=== PATIENT | female | born 1975 | race Caucasian/White ===

== ENCOUNTER 2019-01-12 10:18 | Emergency (ER) | payer SELFPAY ==
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
[2019-01-12] MEDS ORDERED: Baclofen 10 MG Tab PO ONE (11:33)
[2019-01-12] MEDS ORDERED: Ketorolac 60 MG/2 ML SDV IM ONE (11:33)
--- NOTE | 2019-01-12 11:48 | CRLCR ---
Indication: Pain Technique: Three views of the right shoulder. Comparison: None Findings: Glenohumeral and acromioclavicular joints are normally located with no significant degenerative changes. No acute fracture. Visualized portions of the lung are unremarkable. Lower cervical spine ACDF hardware. Impression: No fracture or dislocation Dictated by Ousmane Holloway MD @ Jan 12 2019 11:45AM Signed by Dr. Ousmane Hloloway @ Jan 12 2019 11:46AM
--- NOTE | 2019-01-12 11:53 | CRLCR ---
Indication: Pain Comparison: None Technique: Five views of the cervical spine. Findings: Cervical spine is imaged from the skull base through the cervicothoracic junction. Normal alignment. No fracture. Status post C6-7 ACDF with good osseous fusion. No hardware complication. Mild degenerative disc disease is noted at the C4-C5 and C5-C6 levels. Visualized lung apices unremarkable. Soft tissues unremarkable. Normal open mouth view. On the right there is mild/moderate foraminal narrowing at the C4-C5 and C5-C6 levels in the oblique view. There is no foraminal narrowing on the left in the oblique views. Impression: 1. No fracture or static subluxation. If there is concern for a radiographically occult cervical spine injury, consider CT. 2. Mild degenerative disc disease in the mid cervical spine. 3. Mild/moderate right foraminal narrowing at the C4-C5 and C5-C6 levels in the oblique view. Consider MRI if there is concern for radiculopathy. Dictated by Ousmane Holloway MD @ Jan 12 2019 11:47AM Signed by Dr. Ousmane Holloway @ Jan 12 2019 11:51AM
== END 2019-01-12 12:45 | disposition home or self-care (01) ==
LOC: JP.ED 10:18
DX: S40.011A Contusion of right shoulder, initial encounter (principal); M62.838 Other muscle spasm; Z88.0 Allergy status to penicillin; Z88.4 Allergy status to anesthetic agent; Z88.1 Allergy status to other antibiotic agents; Z88.8 Allergy status to other drugs, medicaments and biological substances; Z88.5 Allergy status to narcotic agent; Z88.2 Allergy status to sulfonamides; V43.12XA Car passenger injured in collision with other type car in nontraffic accident, initial encounter; Y92.524 Gas station as the place of occurrence of the external cause
CPT/HCPCS: 72050; 73030; 96372; 99283; A9270; J1885

== ENCOUNTER 2020-09-28 17:08 | Emergency (ER) | payer MEDICAID ==
[2020-09-28] MEDS ORDERED: Diphtheria,Pertussis(Acell),Tetanus Vaccine 0.5 ML Syringe IM ONE (17:35)
--- NOTE | 2020-09-28 17:43 | EDM.PDOC ---
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 Denies: Old Records History Limitations: Reports: No Limitations - History of Present Illness INITIAL COMMENTS - FREE TEXT/NARRATIVE: 45 yo female was bitten on the L hand dorsum last night. Today the area if red. No prox streaks or fever. Is allergic to Amox and Sulfa. The cat that bit her is strictly an inside cat and is their own cat. 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 (see below) (none) - Related Data Allergies Allergy/AdvReac Type Severity Reaction Status Date / Time amoxicillin Allergy Hives Verified 09/28/20 17:35 bupivacaine Allergy Other Verified 09/28/20 17:35 bupropion [From Wellbutrin] Allergy Other Verified 09/28/20 17:35 buspirone Allergy Cannot Verified 09/28/20 17:35 Remember codeine Allergy Vomiting Verified 09/28/20 17:35 hydrocodone Allergy Itching Verified 09/28/20 17:35 hydromorphone Allergy Itching Verified 09/28/20 17:35 morphine Allergy Itching Verified 09/28/20 17:35 oxycodone Allergy Itching Verified 09/28/20 17:35 Sulfa (Sulfonamide Allergy Rash Verified 09/28/20 17:35 Antibiotics) Narcotics Allergy Other Uncoded 09/28/20 17:35 Home Meds: Home Meds clonazePAM [Clonazepam] 1 - 4 mg PO BEDTIME PRN 01/12/19 [History] Doxycycline [Vibra-Tabs] 100 mg PO Q12HR #20 tab 09/28/20 [Rx] metroNIDAZOLE [Metronidazole] 500 mg PO Q8H #30 tablet 09/28/20 [Rx] Past Medical History HEENT History: Reports: Impaired Vision 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 Psychiatric History: Reports: Other (See Below) Other Psychiatric History: REM behavioral disorder Other Hematologic History: vitamin d deficiency - Past Surgical History Female Surgical History: Reports: Hysterectomy, Tubal Ligation Neurological Surgical History: Reports: Spinal Fusion ED ROS GENERAL - Review of Systems Review Of Systems: See Below Constitutional: Reports: No Symptoms Musculoskeletal: Reports: No Symptoms Skin: Reports: Erythema (dorsum of L hand), Wound (2 small puncture wounds to the dorsum of the L hand) Neurological: Reports: No Symptoms ED EXAM, SKIN/RASH Exam: See Below Exam Limited By: No Limitations General Appearance: Alert, WD/WN, No Apparent Distress Extremities: Normal Inspection Neurological: Alert, Oriented, CN II-XII Intact, Normal Cognition, No Motor/Sensory Deficits Psychiatric: Normal Affect, Normal Mood Skin: Warm, Dry, No Rash, Erythema (dorsum of L hand), Increased Warmth (dorsum of L hand). No: Lymphangitis Location, Skin: Upper Extremity, Left (hand) Characteristics: Erythematous Associated features: Warmth. No: Lymphangitis Course - Vital Signs Last Recorded V/S: Last Vital Signs Temp 36.4 C 09/28/20 17:36 Pulse 70 09/28/20 17:36 Resp 14 09/28/20 17:36 BP 122/75 09/28/20 17:36 Pulse Ox 96 09/28/20 17:36 - Orders/Labs/Meds Orders: Active Orders 24 hr Category Date Time Status Vaccines to be Administered [RC] PER UNIT ROUTINE Care 09/28/20 17:35 Ordered Meds: Medications Discontinued Medications Generic Name Dose Route Start Last Admin Trade Name Freq PRN Reason Stop Dose Admin Diphtheria/Tetanus/Acell Pertussis 0.5 ml 09/28/20 17:35 Diphtheria,Pertussis(Acell),Tetanus Vaccine 0.5 Ml Syringe IM 09/28/20 17:36 .ONCE ONE Departure - Departure Time of Disposition: 17:43 Disposition: Home, Self-Care 01 Condition: Fair Clinical Impression: Infected cat bite of hand Qualifiers: Encounter type: initial encounter Laterality: left Qualified Code(s): S61.452A - Open bite of left hand, initial encounter; L08.9 - Local infection of the skin and subcutaneous tissue, unspecified; W55.01XA - Bitten by cat, initial encounter - Discharge Information *PRESCRIPTION DRUG MONITORING PROGRAM REVIEWED*: Not Applicable *COPY OF PRESCRIPTION DRUG MONITORING REPORT IN PATIENT [facility]RA: Not Applicable Prescriptions: metroNIDAZOLE [Metronidazole] 500 mg PO Q8H #30 tablet Doxycycline [Vibra-Tabs] 100 mg PO Q12HR #20 tab Referrals: PCP,None [Primary Care Provider] - Additional Instructions: Use antibiotics as directed. Acetaminophen as needed for pain relief. Elevate the hand to reduce swelling. Keep wounds clean with soap and water. Recheck in a few days, sooner for worsening infection. Sepsis Event Note (ED) - Evaluation Sepsis Screening Result: No Definite Risk - Focused Exam Vital Signs: Vital Signs Temp Pulse Resp BP Pulse Ox 09/28/20 17:36 36.4 C 70 14 122/75 96 09/28/20 17:23 36.4 C 70 14 122/75 96 - My Orders Last 24 Hours: My Active Orders 09/28/20 17:35 Vaccines to be Administered [RC] PER UNIT ROUTINE - Assessment/Plan Last 24 Hours: My Active Orders 09/28/20 17:35 Vaccines to be Administered [RC] PER UNIT ROUTINE
== END 2020-09-28 17:55 | disposition home or self-care (01) ==
LOC: JP.ED 17:08
DX: S61.452A Open bite of left hand, initial encounter (principal); Z88.5 Allergy status to narcotic agent; Z88.6 Allergy status to analgesic agent; Z88.2 Allergy status to sulfonamides; Z88.0 Allergy status to penicillin; Z88.8 Allergy status to other drugs, medicaments and biological substances; Z23 Encounter for immunization; W55.01XA Bitten by cat, initial encounter
CPT/HCPCS: 90471; 90715; 99283

== ENCOUNTER 2023-07-01 17:09 | Emergency (ER) | payer MEDICARE ==
[2023-07-01 19:42] LABS: BASOPHILS ABSOLUTE AUTO 0.07 K/uL (0.00-0.10); BASOPHILS PERCENT AUTO 1.2 % (0.1-1.3); EOSINOPHILS ABSOLUTE AUTO 0.16 K/uL (0.00-0.40); EOSINOPHILS PERCENT AUTO 2.7 % (0.0-5.4); HEMATOCRIT 39.5 % (34.3-46.0); HEMOGLOBIN 12.6 g/dL (11.2-15.5); IMMATURE GRAN ABSOLUTE AUTO 0.02 K/uL (0.00-0.23); IMMATURE GRAN PERCENT AUTO 0.3 % (0.0-0.7); LYMPHOCYTES ABSOLUTE AUTO 2.12 K/uL (0.8-3.3); LYMPHOCYTES PERCENT AUTO 35.3 % (11.4-47.7); MEAN CORPUSCULAR HEMOGLOBIN 28.1 pg (31.6-35.5); MEAN CORPUSCULAR HGB CONC 31.9 g/dL (31.6-35.5); MEAN CORPUSCULAR VOLUME 88.2 fL (81.4-99.0); MONOCYTES ABSOLUTE AUTO 0.41 K/uL (0.20-0.90); MONOCYTES PERCENT AUTO 6.8 % (3.3-12.6); NEUTROPHILS ABSOLUTE AUTO 3.23 K/uL (1.0-7.6); NEUTROPHILS PERCENT AUTO 53.7 % (40.0-78.1); PLATELET COUNT,PLT 271 K/uL (130-375); RED BLOOD CELL COUNT 4.48 M/uL (3.77-5.24)
[2023-07-01] MEDS: Ketorolac 30 MG/ML SDV IM ONE (20:07)
== END 2023-07-01 22:54 | disposition home or self-care (01) ==
LOC: JP.ED 17:09
DX: S30.0XXA Contusion of lower back and pelvis, initial encounter (principal); L03.317 Cellulitis of buttock; K21.9 Gastro-esophageal reflux disease without esophagitis; Z88.0 Allergy status to penicillin; Z88.2 Allergy status to sulfonamides; Z88.5 Allergy status to narcotic agent; Z88.6 Allergy status to analgesic agent; Z88.8 Allergy status to other drugs, medicaments and biological substances; Z79.899 Other long term (current) drug therapy; Z90.710 Acquired absence of both cervix and uterus; W19.XXXA Unspecified fall, initial encounter
CPT/HCPCS: 36415; 72100; 85025; 96372; 99283; J1885

== ENCOUNTER 2024-02-21 15:35 | Emergency (ER) | payer MEDICAID, MEDICARE ==
[2024-02-21 16:30] LABS: APPEARANCE,URINE CLEAR (CLEAR); BILIRUBIN,URINE NEGATIVE (NEGATIVE); COLOR,URINE YELLOW (YELLOW); GLUCOSE,URINE NEGATIVE (NEGATIVE); KETONES,URINE NEGATIVE (NEGATIVE); LEUKOCYTE ESTERASE,URINE NEGATIVE (NEGATIVE); NITRITE,URINE NEGATIVE (NEGATIVE); OCCULT BLOOD,URINE NEGATIVE (NEGATIVE); PROTEIN,URINE NEGATIVE (NEGATIVE); UROBILINOGEN,URINE 0.2 EU/dL (0.2-1.0)
[2024-02-21 16:41] LABS: AMORPHOUS SEDIMENT,URINE NOT SEEN; BACTERIA,URINE FEW; EPITHELIAL CELLS,URINE FEW; MUCUS,URINE FEW; RBC,URINE NOT SEEN (0-5); WBC,URINE 0-5 (0-5)
[2024-02-21 17:02] LABS: BASOPHILS ABSOLUTE AUTO 0.04 K/uL (0.00-0.10); BASOPHILS PERCENT AUTO 0.5 % (0.1-1.3); EOSINOPHILS ABSOLUTE AUTO 0.13 K/uL (0.00-0.40); EOSINOPHILS PERCENT AUTO 1.7 % (0.0-5.4); HEMOGLOBIN 11.9 g/dL (11.2-15.5); IMMATURE GRAN ABSOLUTE AUTO 0.06 K/uL (0.00-0.23); IMMATURE GRAN PERCENT AUTO 0.8 % (0.0-0.7); LYMPHOCYTES ABSOLUTE AUTO 2.73 K/uL (0.8-3.3); LYMPHOCYTES PERCENT AUTO 35.7 % (11.4-47.7); MEAN CORPUSCULAR HEMOGLOBIN 28.5 pg (31.6-35.5); MEAN CORPUSCULAR HGB CONC 33.1 g/dL (31.6-35.5); MEAN CORPUSCULAR VOLUME 86.3 fL (81.4-99.0); MONOCYTES ABSOLUTE AUTO 0.45 K/uL (0.20-0.90); MONOCYTES PERCENT AUTO 5.9 % (3.3-12.6); NEUTROPHILS ABSOLUTE AUTO 4.24 K/uL (1.0-7.6); NEUTROPHILS PERCENT AUTO 55.4 % (40.0-78.1); PLATELET COUNT,PLT 216 K/uL (130-375); RED BLOOD CELL COUNT 4.17 M/uL (3.77-5.24); WHITE BLOOD CELL COUNT,WBC 7.7 K/uL (3.2-11.0)
[2024-02-21] MEDS: HYDROmorphone 2 MG Tab PO ONE (17:07)
[2024-02-21] MEDS: Cyclobenzaprine 10 MG Tab PO ONE (17:08)
[2024-02-21 17:17] LABS: ANION GAP 9.2 mmol/L (5.0-14.0); CALCIUM 8.9 mg/dL (8.5-10.1); CREATININE 0.9 mg/dL (0.6-1.0); EST CRCL DRUG DOSING (CG) 60.46 mL/min; POTASSIUM,K 3.9 mmol/L (3.6-5.2)
== END 2024-02-21 19:00 | disposition home or self-care (01) ==
LOC: JP.ED 15:35
DX: R55 Syncope and collapse (principal); S40.011A Contusion of right shoulder, initial encounter; K21.9 Gastro-esophageal reflux disease without esophagitis; Z90.710 Acquired absence of both cervix and uterus; Z79.899 Other long term (current) drug therapy; Z88.8 Allergy status to other drugs, medicaments and biological substances; Z88.5 Allergy status to narcotic agent; Z88.2 Allergy status to sulfonamides; Z88.6 Allergy status to analgesic agent; Z91.048 Other nonmedicinal substance allergy status; Z88.0 Allergy status to penicillin; W19.XXXA Unspecified fall, initial encounter; Y92.009 Unspecified place in unspecified non-institutional (private) residence as the place of occurrence of the external cause
CPT/HCPCS: 36415; 72125; 73200; 76377; 80048; 81001; 85025; 93005; 99284; A9270; 93010

== ENCOUNTER 2024-02-29 17:41 | Emergency (ER) | payer MEDICARE ==
[2024-02-29 18:58] LABS: BASOPHILS ABSOLUTE AUTO 0.07 K/uL (0.00-0.10); BASOPHILS PERCENT AUTO 0.9 % (0.1-1.3); EOSINOPHILS ABSOLUTE AUTO 0.18 K/uL (0.00-0.40); EOSINOPHILS PERCENT AUTO 2.2 % (0.0-5.4); HEMATOCRIT 39.2 % (34.3-46.0); HEMOGLOBIN 12.9 g/dL (11.2-15.5); IMMATURE GRAN ABSOLUTE AUTO 0.05 K/uL (0.00-0.23); IMMATURE GRAN PERCENT AUTO 0.6 % (0.0-0.7); LYMPHOCYTES ABSOLUTE AUTO 2.31 K/uL (0.8-3.3); LYMPHOCYTES PERCENT AUTO 28.4 % (11.4-47.7); MEAN CORPUSCULAR HEMOGLOBIN 28.7 pg (31.6-35.5); MEAN CORPUSCULAR HGB CONC 32.9 g/dL (31.6-35.5); MEAN CORPUSCULAR VOLUME 87.3 fL (81.4-99.0); MONOCYTES ABSOLUTE AUTO 0.48 K/uL (0.20-0.90); MONOCYTES PERCENT AUTO 5.9 % (3.3-12.6); NEUTROPHILS ABSOLUTE AUTO 5.04 K/uL (1.0-7.6); PLATELET COUNT,PLT 265 K/uL (130-375); RED BLOOD CELL COUNT 4.49 M/uL (3.77-5.24); WHITE BLOOD CELL COUNT,WBC 8.1 K/uL (3.2-11.0)
== END 2024-02-29 19:44 | disposition home or self-care (01) ==
LOC: JP.ED 17:41
DX: R22.1 Localized swelling, mass and lump, neck (principal); Z90.710 Acquired absence of both cervix and uterus; Z79.899 Other long term (current) drug therapy; Z88.2 Allergy status to sulfonamides; Z88.5 Allergy status to narcotic agent; Z91.048 Other nonmedicinal substance allergy status; Z88.8 Allergy status to other drugs, medicaments and biological substances; Z88.0 Allergy status to penicillin
CPT/HCPCS: 36415; 85025; 99283

== ENCOUNTER 2024-06-01 14:05 | Emergency (ER) | payer MEDICARE ==
[2024-06-01] MEDS: Cyclobenzaprine 10 MG Tab PO ONE (15:12)
[2024-06-01] MEDS: Ketorolac 30 MG/ML SDV IVPUSH ONE (15:18)
[2024-06-01] MEDS: Sodium Chloride 0.9% 10 ML Syringe FLUSH PRN (15:19)
[2024-06-01] MEDS: Lidocaine 1% 5 ML VIAL INJECT ONE (16:29)
[2024-06-01] MEDS: Bacitracin Oint 1 GM U/D Packet TOP ONE (16:29)
[2024-06-01] MEDS: diphenhydrAMINE 50 MG/ML SDV IVPUSH ONE (16:52)
[2024-06-01] MEDS: HYDROmorphone 0.5 MG/0.5 ML Syringe IVPUSH ONE (16:52)
== END 2024-06-01 17:58 | disposition home or self-care (01) ==
LOC: JP.ED 14:05
DX: S01.81XA Laceration without foreign body of other part of head, initial encounter (principal); S80.01XA Contusion of right knee, initial encounter; Z88.0 Allergy status to penicillin; Z88.8 Allergy status to other drugs, medicaments and biological substances; Z88.5 Allergy status to narcotic agent; Z91.048 Other nonmedicinal substance allergy status; Z88.2 Allergy status to sulfonamides; Z79.899 Other long term (current) drug therapy; W00.0XXA Fall on same level due to ice and snow, initial encounter; Y93.89 Activity, other specified
CPT/HCPCS: 12011; 70450; 72100; 72125; 73562; 76377; 96374; 96375; 99282; 99284; A9270; J1200; J1885; J2003

== ENCOUNTER 2024-07-28 13:17 | Emergency (ER) | payer MEDICARE, OTHER ==
[2024-07-28 13:24] LABS: BASOPHILS ABSOLUTE AUTO 0.04 K/uL (0.00-0.10); BASOPHILS PERCENT AUTO 0.7 % (0.1-1.3); EOSINOPHILS ABSOLUTE AUTO 0.06 K/uL (0.00-0.40); HEMATOCRIT 40.6 % (34.3-46.0); IMMATURE GRAN ABSOLUTE AUTO 0.01 K/uL (0.00-0.23); IMMATURE GRAN PERCENT AUTO 0.2 % (0.0-0.7); LYMPHOCYTES ABSOLUTE AUTO 1.79 K/uL (0.8-3.3); LYMPHOCYTES PERCENT AUTO 30.9 % (11.4-47.7); MEAN CORPUSCULAR HEMOGLOBIN 28.3 pg (31.6-35.5); MEAN CORPUSCULAR VOLUME 88.5 fL (81.4-99.0); MONOCYTES ABSOLUTE AUTO 0.41 K/uL (0.20-0.90); MONOCYTES PERCENT AUTO 7.1 % (3.3-12.6); NEUTROPHILS ABSOLUTE AUTO 3.49 K/uL (1.0-7.6); NEUTROPHILS PERCENT AUTO 60.1 % (40.0-78.1); PLATELET COUNT,PLT 201 K/uL (130-375); RED BLOOD CELL COUNT 4.59 M/uL (3.77-5.24); WHITE BLOOD CELL COUNT,WBC 5.8 K/uL (3.2-11.0)
[2024-07-28 13:36] LABS: ANION GAP 9.8 mmol/L (5.0-14.0); BLOOD UREA NITROGEN,BUN 23 mg/dL (7-18); CALCIUM 9.4 mg/dL (8.5-10.1); CARBON DIOXIDE,CO2 28 mmol/L (21-32); CHLORIDE,CL 104 mmol/L (100-108); CREATININE 0.9 mg/dL (0.6-1.0); ESTIMATED GFR 79 mL/min (>60); GLUCOSE RANDOM 94 mg/dL (74-106); POTASSIUM,K 3.7 mmol/L (3.6-5.2); SODIUM,NA 142 mmol/L (140-148)
[2024-07-28] MEDS: Sodium Chloride 0.9% 10 ML Syringe FLUSH PRN (13:36)
[2024-07-28] MEDS: Sodium Chloride 0.9% 80 ML IV ONE (13:36)
[2024-07-28] MEDS: Iopamidol 612 MG/ML 100 ML Bottle IV PRN (13:36)
[2024-07-28] MEDS: fentaNYL 50 MCG/ML SDV IVPUSH ONE (15:03)
[2024-07-28] MEDS: Lidocaine 1% with EPINEPHrine 1:100,000 20 ML MDV INJECT ONE (15:45)
== END 2024-07-28 16:00 | disposition home or self-care (01) ==
LOC: JP.ED 13:17
DX: S06.0XAA Concussion with loss of consciousness status unknown, initial encounter (principal); S01.01XA Laceration without foreign body of scalp, initial encounter; Z88.0 Allergy status to penicillin; Z88.5 Allergy status to narcotic agent; Z88.8 Allergy status to other drugs, medicaments and biological substances; Z88.2 Allergy status to sulfonamides; Z91.048 Other nonmedicinal substance allergy status; Z79.899 Other long term (current) drug therapy; W10.9XXA Fall (on) (from) unspecified stairs and steps, initial encounter; Y93.89 Activity, other specified
CPT/HCPCS: 36415; 70450; 71260; 72125; 73030; 74177; 76377; 80048; 84703; 85025; 96374; 99283; 99285; J2004; J3010; Q9967

== ENCOUNTER 2025-03-27 09:48 | Emergency (ER) | payer OTHER ==
[2025-03-27] MEDS ORDERED: Ketorolac 30 MG/ML SDV IM ONE (10:31)
[2025-03-27] MEDS: Ketorolac 15 MG/ML SDV IVPUSH ONE (11:12)
== END 2025-03-27 12:37 | disposition home or self-care (01) ==
LOC: JP.ED 09:48
DX: M25.552 Pain in left hip (principal); M25.512 Pain in left shoulder; R51.9 Headache, unspecified; K21.9 Gastro-esophageal reflux disease without esophagitis; M19.90 Unspecified osteoarthritis, unspecified site; Z79.899 Other long term (current) drug therapy; Z88.8 Allergy status to other drugs, medicaments and biological substances; Z88.1 Allergy status to other antibiotic agents; Z88.5 Allergy status to narcotic agent; Z88.2 Allergy status to sulfonamides; Z90.710 Acquired absence of both cervix and uterus; W19.XXXA Unspecified fall, initial encounter
CPT/HCPCS: 70450; 71045; 72125; 72170; 73030; 76377; 96374; 99283; 99284; J1885